=== PATIENT | female | born 2000 | race Asian ===

== ENCOUNTER → 2025-08-18 13:40 | Outpatient (CLI) | payer BC, SELFPAY ==
[2025-08-18 15:50] LABS: Free T4, Direct Thyroxine 1.10 ng/dL (0.78-2.19)
[2025-08-18 16:04] LABS: Thyroid Stimulating Hormone 5.06 uIU/mL (0.47-4.68)
== END ==
PROVIDERS: Referring Provider Internal Medicine Endocrinology, Diabetes & Metabolism; Visit Provider Internal Medicine Endocrinology, Diabetes & Metabolism
DX: E05.00 Thyrotoxicosis with diffuse goiter without thyrotoxic crisis or storm (principal)
CPT/HCPCS: 36415; 84439; 84443; 84480

== ENCOUNTER → 2025-10-05 12:32 | Outpatient (CLI) | payer BC, SELFPAY ==
[2025-10-05 14:02] LABS: Free T3, Triiodothyronine Free 3.62 pg/mL (2.77-5.27); Free T4, Direct Thyroxine 1.05 ng/dL (0.78-2.19)
[2025-10-05 14:16] LABS: Thyroid Stimulating Hormone 3.11 uIU/mL (0.47-4.68)
== END ==
PROVIDERS: Referring Provider Internal Medicine Endocrinology, Diabetes & Metabolism; Visit Provider Internal Medicine Endocrinology, Diabetes & Metabolism
DX: E05.00 Thyrotoxicosis with diffuse goiter without thyrotoxic crisis or storm (principal)
CPT/HCPCS: 36415; 83520; 84439; 84443; 84445; 84481